=== PATIENT | male | born 1960 | race Caucasian/White ===

== ENCOUNTER 2019-06-11 07:46 | Outpatient (CLI) | payer BC, OTHER | END 2019-06-11 23:59 | disposition home or self-care (01) | LOC: CVU 07:46 → CFH 23:59 | PROVIDERS: ATTEND Internal Medicine Cardiovascular Disease | DX: I08.0 Rheumatic disorders of both mitral and aortic valves (principal); I11.9 Hypertensive heart disease without heart failure; E78.5 Hyperlipidemia, unspecified | CPT/HCPCS: 93306 ==

== ENCOUNTER → 2020-11-05 | Outpatient (CLI) | payer OTHER | END | disposition home or self-care (01) | LOC: CVU 10:49 | PROVIDERS: ATTEND Internal Medicine Cardiovascular Disease | DX: I08.0 Rheumatic disorders of both mitral and aortic valves (principal); I11.9 Hypertensive heart disease without heart failure | CPT/HCPCS: 93306 ==

== ENCOUNTER 2020-12-22 08:11 | Day surgery (SDC) | payer OTHER ==
[~2020-12-22] VITALS: Ht 172.7 cm; Wt 114.0 kg
[2020-12-22] MEDS ORDERED: AMLO-150 PO (08:38)
[2020-12-22] MEDS ORDERED: LOSA100T14 PO (08:38)
[2020-12-22] MEDS ORDERED: ASPI81TA45 PO (08:38)
[2020-12-22] MEDS ORDERED: ATOR40TA PO (08:38)
[2020-12-22 08:39] VITALS: BP 136/86
[2020-12-22 08:59] LABS: BASOPHILS % (AUTO) 1 % (0-1); EOSINOPHILS % (AUTO) 3 % (1-7); LYMPHOCYTES % (AUTO) 16 % (22-44); MEAN CORPUSCULAR HEMOGLOBIN 33.5 pg (27.5-34.5); MEAN CORPUSCULAR HGB CONC 33.8 g/dL (33.2-36.2); MEAN PLATELET VOLUME 7.8 fL (7.4-10.4); MONOCYTES % (AUTO) 8 % (2-9); NEUTROPHILS % (AUTO) 73 % (42-75); PLATELET COUNT 233 x10^3/uL (130-400); RED BLOOD COUNT 4.67 x10^6/uL (4.38-5.82); RED CELL DISTRIBUTION WIDTH 13.3 % (9.4-14.8)
[2020-12-22 09:01] LABS: MD NO
[2020-12-22 09:07] LABS: ANION GAP 9 mmol/L (5-15); CALCIUM 8.9 mg/dL (8.5-10.1); CHLORIDE 113 mmol/L (98-107); CREATININE 0.78 mg/dL (0.7-1.3)
[2020-12-22] MEDS ORDERED: LIDOCAINE 2%, 20ML ONE (09:48)
[2020-12-22] MEDS ORDERED: FENTANYL PF 100 MCG/2ML ONE ×2 (09:48→10:16)
[2020-12-22] MEDS ORDERED: MIDAZOLAM 1 MG/ML, 2ML ONE ×2 (09:48→10:16)
== END 2020-12-22 16:57 | disposition home or self-care (01) ==
LOC: CACL 08:11
PROVIDERS: ATTEND Internal Medicine Cardiovascular Disease
DX: Z01.810 Encounter for preprocedural cardiovascular examination (principal); I35.0 Nonrheumatic aortic (valve) stenosis; I25.10 Atherosclerotic heart disease of native coronary artery without angina pectoris; I25.83 Coronary atherosclerosis due to lipid rich plaque; I45.19 Other right bundle-branch block; I10 Essential (primary) hypertension; E78.5 Hyperlipidemia, unspecified; E66.3 Overweight; Z68.37 Body mass index [BMI] 37.0-37.9, adult; Z79.82 Long term (current) use of aspirin; Z79.899 Other long term (current) drug therapy; Z87.891 Personal history of nicotine dependence; Z98.890 Other specified postprocedural states
CPT/HCPCS: 36415; 80048; 85025; 93454; 99156; C1769; C1894; J2250; J3010; Q9967; 99157

== ENCOUNTER → 2021-01-20 | Outpatient (CLI) | payer OTHER ==
[~2021-01-20] MED LIST: AMLO-150 PO; ASPI81TA45 PO; ATOR40TA PO; LOSA100T14 PO
== END | disposition home or self-care (01) ==
LOC: STAR 12:10
PROVIDERS: ATTEND Thoracic Surgery (Cardiothoracic Vascular Surgery)
DX: Z20.822 Contact with and (suspected) exposure to COVID-19 (principal)
CPT/HCPCS: 87635

== ENCOUNTER 2021-01-25 04:16 | Inpatient (IN) | payer OTHER ==
[2021-01-24 14:15] LABS: MICROSCOPIC NOT IND
[2021-01-24 14:18] LABS: ALBUMIN 4.1 g/dL (3.4-5.0); ANION GAP 7 mmol/L (5-15); CALCIUM 9.4 mg/dL (8.5-10.1); CHLORIDE 108 mmol/L (98-107)
[2021-01-24 14:21] LABS: INTERNATIONAL NORMALIZED RATIO 0.99 (0.93-1.1); PROTHROMBIN TIME 10.6 Seconds (9.6-11.5)
[2021-01-24 14:22] LABS: ALANINE AMINOTRANSFERASE 29 U/L (12-78); ALKALINE PHOSPHATASE 79 U/L (45-117); BILIRUBIN,TOTAL 0.6 mg/dL (0.2-1.0); CREATININE 0.96 mg/dL (0.7-1.3)
[2021-01-24 14:24] LABS: BASOPHILS % (AUTO) 1 % (0-1); EOSINOPHILS % (AUTO) 2 % (1-7); LYMPHOCYTES % (AUTO) 17 % (22-44); MEAN CORPUSCULAR HEMOGLOBIN 34.1 pg (27.5-34.5); MEAN CORPUSCULAR HGB CONC 33.8 g/dL (33.2-36.2); MEAN PLATELET VOLUME 7.7 fL (7.4-10.4); MONOCYTES % (AUTO) 12 % (2-9); NEUTROPHILS % (AUTO) 68 % (42-75); PLATELET COUNT 248 x10^3/uL (130-400); RED CELL DISTRIBUTION WIDTH 13.5 % (9.4-14.8)
[2021-01-24 14:35] LABS: MD NO
[~2021-01-25] VITALS: Ht 172.7 cm; Wt 115.3 kg
[2021-01-25 04:30] VITALS: BP 167/86
[2021-01-25 04:31] VITALS: BP 163/84
[2021-01-25] MEDS ORDERED: INSULIN LISPRO 100 UNITS/ML, PEN SQ-INSULIN ONE (05:00)
[2021-01-25] MEDS ORDERED: DO NOT GIVE MC SCH (05:00)
[2021-01-25] MEDS ORDERED: CHLORHEXIDINE 15 ML UDC MM PRN (05:00)
[2021-01-25] MEDS ORDERED: MIDAZOLAM 10MG/2 ML ONE (07:09)
[2021-01-25] MEDS ORDERED: FENTANYL PF 250 MCG/5ML ONE ×5 (07:09→08:12)
[2021-01-25] MEDS ORDERED: DEXMEDETOMIDINE 200 MCG in SODIUM CHLORIDE 0.9% 48 ML IV PRN ×2 (07:30→11:30)
[2021-01-25] MEDS ORDERED: VANCOMYCIN 1,700 MG in SODIUM CHLORIDE 0.9% 250 ML IV PRN (07:30)
[2021-01-25] MEDS ORDERED: MANNITOL PMX 20% 500 ML IVPB PRN (07:30)
[2021-01-25] MEDS ORDERED: ALBUMIN HUMAN 5% 500 ML IV PRN (07:30)
[2021-01-25] MEDS ORDERED: CEFUROXIME 1.5 GM in SODIUM CHLORIDE 0.9% 50 ML IVPB PRN (07:30)
[2021-01-25] MEDS ORDERED: PHENYLEPHRINE 50 MG in SODIUM CHLORIDE 0.9% 245 ML IV PRN ×2 (07:30→11:30)
[2021-01-25] MEDS ORDERED: POTASSIUM CHLORIDE 80 MEQ, SODIUM BICARBONATE 8.4% 10 MEQ, MAGNESIUM SULFATE 0.5 GM, LI... IV PRN (07:30)
[2021-01-25] MEDS ORDERED: EPINEPHRINE 5 MG in SODIUM CHLORIDE 0.9% 245 ML IV PRN (07:30)
[2021-01-25] MEDS ORDERED: REGULAR INSULIN 100 UNITS in SODIUM CHLORIDE 0.9% 99 ML IV PRN ×2 (07:30→11:30)
[2021-01-25] MEDS ORDERED: ROCURONIUM 10MG/ML,5ML ONE ×2 (08:12→08:13)
[2021-01-25] MEDS ORDERED: PROPOFOL 10 MG/ML, 20ML ONE (08:12)
[2021-01-25] MEDS ORDERED: AMINOCAPROIC ACID 250 MG/ML, 20ML ONE ×3 (08:12→10:27)
[2021-01-25] MEDS ORDERED: CALCIUM CHLORIDE 10%, 10ML SYR ONE ×2 (08:12→11:11)
[2021-01-25] MEDS ORDERED: EPINEPHRINE 1 MG/ML, 1ML ONE (08:13)
[2021-01-25] MEDS ORDERED: PROTAMINE SULFATE 10 MG/ML, 25ML ONE ×2 (08:33→10:27)
[2021-01-25] MEDS ORDERED: SODIUM CHLORIDE FLUSH 10ML SYR IVF SCH (09:00)
[2021-01-25] MEDS ORDERED: MUPIROCIN OINT 2%, 22GM TP SCH (09:00)
[2021-01-25] MEDS ORDERED: LIDOCAINE-MPF 2% ,5ML ONE ×2 (09:39→09:40)
[2021-01-25] MEDS ORDERED: AMIODARONE 50 MG/ML, 3ML ONE ×3 (10:27)
[2021-01-25] MEDS ORDERED: methylPREDNISolone SOD SUCC 125 MG/2 ML ONE (11:11)
[2021-01-25] MEDS ORDERED: LIDOCAINE 2%, 20ML ONE (11:11)
[2021-01-25] MEDS ORDERED: HEPARIN 1,000 UNITS/ML, 30ML ONE (11:11)
[2021-01-25] MEDS ORDERED: SODIUM BICARBONATE 1 MEQ/ML, 50ML VIAL ONE (11:12)
[2021-01-25] MEDS ORDERED: ALBUMIN HUMAN 25% 50 ML ONE (11:12)
[2021-01-25 11:20] LABS: GLUCOSE BY BLOOD GAS ANALYZER 133 mg/dL (70-110); HEMOGLOBIN BY BLOOD GAS ANALYZ 13.9 g/dL (14.0-18.0); POTASSIUM BY BLOOD GAS ANALYZR 4.8 mmol/L (3.6-5.5)
[2021-01-25] MEDS: INSULIN LISPRO 100 UNITS/ML, PEN SQ-INSULIN SCH ×4 (11:30→23:30)
[2021-01-25] MEDS ORDERED: DOBUTAMINE 250 MG in SODIUM CHLORIDE 0.9% 230 ML IV PRN (11:30)
[2021-01-25] MEDS ORDERED: MIDAZOLAM 1 MG/ML, 2ML IV PRN (11:30)
[2021-01-25] MEDS ORDERED: ACETAMINOPHEN 650 MG SUPP PR PRN (11:30)
[2021-01-25] MEDS ORDERED: INSULIN REGULAR 100 UNITS/ML, 3ML VIAL SQ-INSULIN PRN (11:30)
[2021-01-25] MEDS ORDERED: PROCHLORPERAZINE 5 MG/ML, 2ML IV PRN (11:30)
[2021-01-25] MEDS ORDERED: DEXTROSE 50%, 50ML SYRINGE IVPush PRN (11:30)
[2021-01-25] MEDS: KSCALE TO 4.5 IV SCH ×2 (11:30→18:35)
[2021-01-25] MEDS ORDERED: SODIUM CHLORIDE 0.9% 1,000 ML IV SCH (11:30)
[2021-01-25] MEDS ORDERED: LACTATED RINGERS 500 ML IVBOLUS PRN (11:30)
[2021-01-25] MEDS ORDERED: NITROGLYCERIN/D5W PMX 250 ML IV PRN (11:30)
[2021-01-25] MEDS ORDERED: FENTANYL PF 100 MCG/2ML IV PRN (11:30)
[2021-01-25] MEDS ORDERED: PHARMACY INSTRUCTION (CSU AMIODARONE) MC SCH (11:30)
[2021-01-25] MEDS ORDERED: VASOPRESSIN 20 UNIT in SODIUM CHLORIDE 0.9% 99 ML IV PRN (11:30)
[2021-01-25] MEDS ORDERED: BISACODYL 10 MG SUPP PR PRN (11:30)
[2021-01-25] MEDS ORDERED: ONDANSETRON 2MG/ML, 2ML IV PRN (11:30)
[2021-01-25] MEDS ORDERED: GLUCAGON 1 MG IM PRN (11:30)
[2021-01-25] MEDS ORDERED: BISACODYL 5 MG EC TABLET PO PRN (11:30)
[2021-01-25] MEDS ORDERED: EPINEPHRINE 5 MG in SODIUM CHLORIDE 0.9% 245 ML IVPB PRN (11:30)
[2021-01-25] MEDS ORDERED: morphine SULFATE 10 MG/ML, 1ML IV PRN (11:30)
[2021-01-25] MEDS ORDERED: SODIUM BICARB 8.4%, 50ML SYRINGE IVPush PRN (11:30)
[2021-01-25] MEDS ORDERED: DEXTROSE 4 GM TAB.CHEW PO PRN (11:30)
[2021-01-25 11:32] LABS: ANION GAP 7 mmol/L (5-15); CALCIUM 8.8 mg/dL (8.5-10.1); CHLORIDE 113 mmol/L (98-107); CREATININE 0.79 mg/dL (0.7-1.3)
[2021-01-25 11:35] LABS: INTERNATIONAL NORMALIZED RATIO 1.16 (0.93-1.1); PROTHROMBIN TIME 12.4 Seconds (9.6-11.5)
[2021-01-25] MEDS: MAGNESIUM SULFATE 1 GM in SODIUM CHLORIDE 0.9% 50 ML IVPB SCH (12:07)
[2021-01-25] MEDS ORDERED: DEXMEDETOMIDINE 1,000 MCG in SODIUM CHLORIDE 0.9% 240 ML IV PRN (12:30)
[2021-01-25] MEDS: OXYcodone IR 5MG TABLET PO PRN ×3 (14:30→21:15)
[2021-01-25] MEDS: HYDROcodone/APAP 5/325 TABLET PO PRN (16:53)
[2021-01-25] MEDS: CEFUROXIME 1.5 GM in SODIUM CHLORIDE 0.9% 50 ML IVPB SCH (18:40)
[2021-01-25] MEDS: VANCOMYCIN 1,500 MG in SODIUM CHLORIDE 0.9% 250 ML IV SCH (19:35)
[2021-01-25] MEDS: DOCUSATE 100 MG CAPSULE PO SCH (21:14)
[2021-01-25] MEDS: MUPIROCIN OINT 2%, 22GM NAS SCH (21:16)
[2021-01-25] MEDS: SODIUM CHLORIDE FLUSH 10ML SYR IVF SCH (21:17)
[2021-01-26] MEDS: HYDROcodone/APAP 10/325 MG TABLET PO PRN ×4 (02:26→22:51)
[2021-01-26] MEDS: INSULIN LISPRO 100 UNITS/ML, PEN SQ-INSULIN SCH ×6 (03:34→22:56)
[2021-01-26 05:34] LABS: MEAN CORPUSCULAR HEMOGLOBIN 33.9 pg (27.5-34.5); MEAN CORPUSCULAR HGB CONC 33.8 g/dL (33.2-36.2); MEAN PLATELET VOLUME 8.2 fL (7.4-10.4); PLATELET COUNT 168 x10^3/uL (130-400); RED CELL DISTRIBUTION WIDTH 13.6 % (9.4-14.8)
[2021-01-26 05:36] LABS: CHLORIDE 109 mmol/L (98-107)
[2021-01-26 05:43] LABS: ALBUMIN 3.1 g/dL (3.4-5.0); CALCIUM 7.8 mg/dL (8.5-10.1); CREATININE 0.67 mg/dL (0.7-1.3)
[2021-01-26 06:17] LABS: MD YES
[2021-01-26 06:19] LABS: BAND#(MANUAL) 2.25 x10^3/uL; BANDS%(MANUAL) 15 % (0-7); LYMPHS% (MANUAL) 4 % (22-44); MONOS#(MANUAL) 1.05 x10^3/uL (0.3-2.7); MONOS% (MANUAL) 7 % (2-9); SEGS% (MANUAL) 74 % (42-75)
[2021-01-26 06:20] LABS: <PLATELET ESTIMATE> ADEQUATE; <PLT MORPHOLOGY> NORMAL PLT MORPH; <RBC MORPHOLOGY> NORMAL
[2021-01-26] MEDS: KSCALE TO 4.5 IV SCH ×2 (06:27)
[2021-01-26] MEDS: CEFUROXIME 1.5 GM in SODIUM CHLORIDE 0.9% 50 ML IVPB SCH (06:40)
[2021-01-26] MEDS: VANCOMYCIN 1,500 MG in SODIUM CHLORIDE 0.9% 250 ML IV SCH (07:37)
[2021-01-26] MEDS: SODIUM CHLORIDE FLUSH 10ML SYR IVF SCH ×2 (08:51→20:25)
[2021-01-26] MEDS: DOCUSATE 100 MG CAPSULE PO SCH ×2 (08:51→20:23)
[2021-01-26] MEDS: ASPIRIN 81 MG TABLET EC PO SCH (08:51)
[2021-01-26] MEDS: CHLORHEXIDINE 15 ML UDC MM SCH ×2 (08:51→20:23)
[2021-01-26] MEDS: MUPIROCIN OINT 2%, 22GM NAS SCH ×2 (08:52→20:23)
[2021-01-26] MEDS ORDERED: CALCIUM GLUCONATE 4.6 MEQ in SODIUM CHLORIDE 0.9% 100 ML IV ONE (09:30)
[2021-01-26] MEDS: LOSARTAN 100 MG TAB PO SCH (10:36)
[2021-01-26] MEDS: MAGNESIUM SULFATE 1 GM in SODIUM CHLORIDE 0.9% 50 ML IVPB SCH (11:46)
[2021-01-26] MEDS: SUCRALFATE 1 GM/10 ML UDC PO SCH ×3 (12:13→20:23)
[2021-01-26 20:10] VITALS: BP 111/68
[2021-01-26 23:29] VITALS: BP 116/64
[2021-01-27] MEDS: HYDROcodone/APAP 10/325 MG TABLET PO PRN ×2 (05:14→12:41)
[2021-01-27 06:02] LABS: BASOPHILS % (AUTO) 0 % (0-1); EOSINOPHILS % (AUTO) 0 % (1-7); LYMPHOCYTES % (AUTO) 9 % (22-44); MEAN CORPUSCULAR HEMOGLOBIN 33.5 pg (27.5-34.5); MEAN CORPUSCULAR HGB CONC 33.3 g/dL (33.2-36.2); MEAN PLATELET VOLUME 8.1 fL (7.4-10.4); MONOCYTES % (AUTO) 11 % (2-9); NEUTROPHILS % (AUTO) 80 % (42-75); PLATELET COUNT 158 x10^3/uL (130-400); RED BLOOD COUNT 3.92 x10^6/uL (4.38-5.82); RED CELL DISTRIBUTION WIDTH 13.3 % (9.4-14.8)
[2021-01-27 06:03] LABS: ANION GAP 5 mmol/L (5-15); CALCIUM 8.7 mg/dL (8.5-10.1); CHLORIDE 108 mmol/L (98-107); CREATININE 0.67 mg/dL (0.7-1.3)
[2021-01-27 06:06] LABS: MD NO
[2021-01-27] MEDS: INSULIN LISPRO 100 UNITS/ML, PEN SQ-INSULIN SCH ×4 (07:00→20:11)
[2021-01-27 07:40] VITALS: BP 115/67
[2021-01-27] MEDS: CHLORHEXIDINE 15 ML UDC MM SCH ×2 (08:38→20:10)
[2021-01-27] MEDS: ASPIRIN 81 MG TABLET EC PO SCH (08:39)
[2021-01-27] MEDS: DOCUSATE 100 MG CAPSULE PO SCH ×2 (08:39→20:10)
[2021-01-27] MEDS: MUPIROCIN OINT 2%, 22GM NAS SCH ×2 (08:39→20:10)
[2021-01-27] MEDS: LOSARTAN 100 MG TAB PO SCH (08:39)
[2021-01-27] MEDS: SODIUM CHLORIDE FLUSH 10ML SYR IVF SCH ×2 (08:39→20:11)
[2021-01-27] MEDS: SUCRALFATE 1 GM/10 ML UDC PO SCH ×4 (08:42→20:10)
[2021-01-27] MEDS ORDERED: AMLODIPINE 5 MG TABLET PO SCH (09:00)
[2021-01-27] MEDS ORDERED: LOSARTAN 100 MG TAB PO SCH (09:00)
[2021-01-27] MEDS: MAGNESIUM SULFATE 1 GM in SODIUM CHLORIDE 0.9% 50 ML IVPB SCH (12:41)
[2021-01-27 13:00] VITALS: BP 128/72
[2021-01-27] MEDS: HYDROcodone/APAP 5/325 TABLET PO PRN ×2 (17:52→22:29)
[2021-01-27 19:03] VITALS: BP 142/82
[2021-01-27 20:05] VITALS: BP 137/87
[2021-01-28 01:08] VITALS: BP 150/73
[2021-01-28 05:28] LABS: BASOPHILS % (AUTO) 1 % (0-1); EOSINOPHILS % (AUTO) 1 % (1-7); LYMPHOCYTES % (AUTO) 11 % (22-44); MEAN CORPUSCULAR HEMOGLOBIN 33.4 pg (27.5-34.5); MEAN PLATELET VOLUME 7.9 fL (7.4-10.4); MONOCYTES % (AUTO) 9 % (2-9); NEUTROPHILS % (AUTO) 79 % (42-75); PLATELET COUNT 179 x10^3/uL (130-400); RED BLOOD COUNT 4.16 x10^6/uL (4.38-5.82); RED CELL DISTRIBUTION WIDTH 13.2 % (9.4-14.8)
[2021-01-28] MEDS: SUCRALFATE 1 GM/10 ML UDC PO SCH ×4 (05:29→20:39)
[2021-01-28 05:31] LABS: ANION GAP 6 mmol/L (5-15); CALCIUM 8.4 mg/dL (8.5-10.1); CHLORIDE 107 mmol/L (98-107); CREATININE 0.58 mg/dL (0.7-1.3)
[2021-01-28 05:36] LABS: MD NO
[2021-01-28] MEDS: INSULIN LISPRO 100 UNITS/ML, PEN SQ-INSULIN SCH ×3 (07:00→16:00)
[2021-01-28 07:35] VITALS: BP 145/79
[2021-01-28] MEDS ORDERED: SIMETHICONE 125 MG CHEW TAB PO PRN (08:30)
[2021-01-28] MEDS ORDERED: POLYETHYLENE GLYCOL 17 GM PACKET PO ONE (08:30)
[2021-01-28] MEDS: ASPIRIN 81 MG TABLET EC PO SCH (08:43)
[2021-01-28] MEDS: DOCUSATE 100 MG CAPSULE PO SCH ×2 (08:43→20:39)
[2021-01-28] MEDS: ATORVASTATIN 40 MG TABLET PO SCH (08:43)
[2021-01-28] MEDS: POTASSIUM CHLORIDE 20 MEQ TAB.ER.PRT PO SCH (08:43)
[2021-01-28] MEDS: FUROSEMIDE 40 MG/4 ML IV SCH (08:43)
[2021-01-28] MEDS: AMLODIPINE 10 MG TAB PO SCH (08:43)
[2021-01-28] MEDS: LOSARTAN 100 MG TAB PO SCH (08:43)
[2021-01-28] MEDS: SODIUM CHLORIDE FLUSH 10ML SYR IVF SCH ×2 (08:44→20:38)
[2021-01-28] MEDS: MUPIROCIN OINT 2%, 22GM NAS SCH ×2 (08:45→20:38)
[2021-01-28] MEDS ORDERED: LIDOCAINE 1%, 10ML ONE (10:12)
[2021-01-28] MEDS: HYDROcodone/APAP 5/325 TABLET PO PRN (10:14)
[2021-01-28 12:11] VITALS: BP 108/71
[2021-01-28 19:37] VITALS: BP 124/77
[2021-01-28] MEDS: HYDROcodone/APAP 10/325 MG TABLET PO PRN (20:39)
[2021-01-29 02:52] VITALS: BP 146/76
[2021-01-29] MEDS: HYDROcodone/APAP 5/325 TABLET PO PRN (03:21)
[2021-01-29] MEDS: SUCRALFATE 1 GM/10 ML UDC PO SCH ×4 (05:06→20:11)
[2021-01-29 05:23] LABS: BASOPHILS % (AUTO) 1 % (0-1); EOSINOPHILS % (AUTO) 2 % (1-7); LYMPHOCYTES % (AUTO) 14 % (22-44); MEAN PLATELET VOLUME 7.7 fL (7.4-10.4); MONOCYTES % (AUTO) 12 % (2-9); NEUTROPHILS % (AUTO) 72 % (42-75); PLATELET COUNT 160 x10^3/uL (130-400); RED BLOOD COUNT 3.79 x10^6/uL (4.38-5.82); RED CELL DISTRIBUTION WIDTH 13.1 % (9.4-14.8)
[2021-01-29 05:31] LABS: CHLORIDE 105 mmol/L (98-107)
[2021-01-29 05:36] LABS: ANION GAP 4 mmol/L (5-15); CALCIUM 8.5 mg/dL (8.5-10.1); CREATININE 0.63 mg/dL (0.7-1.3)
[2021-01-29 06:02] VITALS: BP 125/67
[2021-01-29 06:45] LABS: MD SCAN
[2021-01-29 07:04] VITALS: BP 148/75
[2021-01-29] MEDS: FUROSEMIDE 40 MG/4 ML IV SCH (10:03)
[2021-01-29] MEDS: POTASSIUM CHLORIDE 20 MEQ TAB.ER.PRT PO SCH (10:03)
[2021-01-29] MEDS: AMLODIPINE 10 MG TAB PO SCH (10:04)
[2021-01-29] MEDS: ASPIRIN 81 MG TABLET EC PO SCH (10:04)
[2021-01-29] MEDS: SODIUM CHLORIDE FLUSH 10ML SYR IVF SCH ×2 (10:04→20:11)
[2021-01-29] MEDS: MUPIROCIN OINT 2%, 22GM NAS SCH ×2 (10:04→20:12)
[2021-01-29] MEDS: ATORVASTATIN 40 MG TABLET PO SCH (10:05)
[2021-01-29] MEDS: DOCUSATE 100 MG CAPSULE PO SCH ×2 (10:05→20:11)
[2021-01-29] MEDS: LOSARTAN 100 MG TAB PO SCH (10:05)
[2021-01-29 13:01] VITALS: BP 121/73
[2021-01-29 18:39] VITALS: BP 112/73
[2021-01-29] MEDS: HYDROcodone/APAP 10/325 MG TABLET PO PRN (18:41)
[2021-01-30 00:55] VITALS: BP 128/75
[2021-01-30] MEDS: ACETAMINOPHEN 325 MG TABLET PO PRN ×2 (03:54→10:48)
[2021-01-30 05:01] LABS: BASOPHILS % (AUTO) 1 % (0-1); EOSINOPHILS % (AUTO) 3 % (1-7); LYMPHOCYTES % (AUTO) 16 % (22-44); MEAN CORPUSCULAR HEMOGLOBIN 33.8 pg (27.5-34.5); MEAN PLATELET VOLUME 7.6 fL (7.4-10.4); MONOCYTES % (AUTO) 15 % (2-9); NEUTROPHILS % (AUTO) 66 % (42-75); PLATELET COUNT 222 x10^3/uL (130-400); RED BLOOD COUNT 3.84 x10^6/uL (4.38-5.82); RED CELL DISTRIBUTION WIDTH 13.1 % (9.4-14.8)
[2021-01-30 05:02] LABS: MD NO
[2021-01-30 05:11] LABS: ANION GAP 4 mmol/L (5-15); CALCIUM 8.3 mg/dL (8.5-10.1); CHLORIDE 105 mmol/L (98-107); CREATININE 0.73 mg/dL (0.7-1.3)
[2021-01-30] MEDS: SUCRALFATE 1 GM/10 ML UDC PO SCH ×2 (06:40→11:00)
[2021-01-30 07:47] VITALS: BP 139/86
[2021-01-30] MEDS: POTASSIUM CHLORIDE 20 MEQ TAB.ER.PRT PO SCH (08:43)
[2021-01-30] MEDS: DOCUSATE 100 MG CAPSULE PO SCH (08:43)
[2021-01-30] MEDS: ASPIRIN 81 MG TABLET EC PO SCH (08:43)
[2021-01-30] MEDS: SODIUM CHLORIDE FLUSH 10ML SYR IVF SCH (08:44)
[2021-01-30] MEDS: ATORVASTATIN 40 MG TABLET PO SCH (08:44)
[2021-01-30] MEDS: LOSARTAN 100 MG TAB PO SCH (08:44)
[2021-01-30] MEDS: AMLODIPINE 10 MG TAB PO SCH (08:44)
[2021-01-30] MEDS: FUROSEMIDE 40 MG/4 ML IV SCH (08:44)
[2021-01-30] MEDS: MUPIROCIN OINT 2%, 22GM NAS SCH (09:00)
[2021-01-30] MEDS ORDERED: POTA20TA6 PO (10:24)
[2021-01-30] MEDS ORDERED: HYDR-1067 PO (10:24)
[2021-01-30] MEDS ORDERED: FURO-92 PO (10:24)
== END 2021-01-30 12:50 | disposition home or self-care (01) | DRG 220 ==
LOC: 5SO 04:16 → CSU 08:47 → 5SO 01-26 17:55 → DCLOUNGE 01-30 12:37
PROVIDERS: ADMIT Thoracic Surgery (Cardiothoracic Vascular Surgery); ATTEND Thoracic Surgery (Cardiothoracic Vascular Surgery)
PROC: 5A1221Z Performance of Cardiac Output, Continuous (ICD-10-PCS; 2021-01-25)
PROC: 5A2204Z Restoration of Cardiac Rhythm, Single (ICD-10-PCS; 2021-01-25)
PROC: B24BZZ4 Ultrasonography of Heart with Aorta, Transesophageal (ICD-10-PCS; 2021-01-25)
PROC: 02RF08Z Replacement of Aortic Valve with Zooplastic Tissue, Open Approach (ICD-10-PCS; principal; 2021-01-25 07:30)
DX: I35.0 Nonrheumatic aortic (valve) stenosis (principal); J93.82 Other air leak; I10 Essential (primary) hypertension; Z00.6 Encounter for examination for normal comparison and control in clinical research program
CPT/HCPCS: 32555; 36415; 36600; J3490; S0017; 71045; 71046; 80048; 80053; 81003; 82040; 82330; 82800; 82803; 82810; 82947; 82962; 83036; 83735; 84132; 84295; 85014; 85018; 85025; 85049; 85347; 85610; 85730; 86850; 86900; 86923; 87081; 88305; 93005; 93312; 93321; 93325; 93880; 94002; 94150; C1768; G0378; J0171; J0610; J0697; J1644; J1815; J1940; J2250; J2405; J2704; J2720; J3010; J3370; J3475; J3480; P9045; P9047; C1751; C1760; J0282; J2370; J2930; J7050

== ENCOUNTER → 2021-03-14 | Outpatient (CLI) | payer OTHER ==
[~2021-03-14] MED LIST changes: +FURO-92 PO; +HYDR-2214 PO; +POTA20TA6 PO
== END | disposition home or self-care (01) ==
LOC: CVU 06:49
PROVIDERS: ATTEND Internal Medicine Cardiovascular Disease
DX: I34.8 Other nonrheumatic mitral valve disorders (principal); I11.9 Hypertensive heart disease without heart failure; E78.5 Hyperlipidemia, unspecified
CPT/HCPCS: 93306